=== PATIENT | female | born 1995 | race Caucasian/White ===

== ENCOUNTER 2023-03-24 12:16 | Emergency (ER) | payer OTHER, SELFPAY ==
[2023-03-24] VITALS (7 sets, daily range): BP systolic 105–158; BP diastolic 53–107; BMI 40.8
[2023-03-24 14:01] LABS: % Basophils 0.6 % (0-2); % Eosinophils 5.2 % (0-6); % Immature Granulocytes 0.2 % (0-0.5); % Lymphocytes 32.4 % (20.5-51.1); % Monocytes 4.8 % (1.7-9.3); % Neutrophils 56.8 % (42.2-75.2); Absolute Basophils 0.1 10^3/uL (0-0.2); Absolute Eosinophils 0.6 10^3/uL (0-0.7); Absolute Monocytes 0.6 10^3/uL (0.1-0.6); Absolute Neutrophils 6.9 10^3/uL (1.4-6.5); Hematocrit 35.1 % (37.0-47.0); Hemoglobin 12.2 g/dL (12.0-16.0); Mean Corp Hgb Conc. 34.8 g/dL (33.0-37.0); Mean Corpuscular Hgb 29.7 pg (27.0-31.0); Mean Corpuscular Volume 85.4 fL (81.0-99.0); Mean Platelet Volume 9.8 fL (7.4-10.4); Nucleated Red Blood Cells % 0 %; Platelet Count 369 10^3/uL (130-400); Red Blood Cell Count 4.11 10^6/uL (4.20-5.40); Red Cell Dist. Width 13.3 % (11.5-14.5); White Blood Cell Count 12.2 10^3/uL (4.8-10.8)
[2023-03-24 14:25] LABS: ALT (SGPT) 14 U/L (0-35); AST (SGOT) 19 U/L (14-36); Albumin 3.9 g/dl (3.5-5.0); Alkaline Phosphatase 74 U/L (38-126); Blood Urea Nitrogen 14 mg/dl (7-17); Calcium 9.3 mg/dl (8.4-10.2); Carbon Dioxide 24 mmol/L (22-30); Chloride 102 mmol/L (98-107); Estimated Creatinine Clearance 118 ml/min; Glucose 100 mg/dl (70-99); Potassium 4.2 mmol/L (3.5-5.1); Sodium 136 mmol/L (135-145); Total Bilirubin 0.5 mg/dl (0.2-1.3); Total Protein 7.1 g/dl (6.3-8.2); eGFR > 60.00
[2023-03-24 14:29] LABS: HCG, Serum Qualitative Screen Negative
--- NOTE | 2023-03-24 14:39 | ED.GENMED ---
History of Present Illness
General
Chief Complaint: Heart Rate Problem
Source: patient
Exam Limitations: none
Time Seen by Provider: 03/24/23 12:40
Travel History
Have you had any contact with someone who has COVID-19?: No
Do you have any symptoms of coronavirus? Fever > 100 degrees, chills, cough, shortness of breath, sore throat, loss of taste or smell, muscle aches, or headache?: No
History of Present Illness
History of Present Illness:
27-year-old female who presents with complaint palpitations been ongoing for few days. Patient states that they are intermittent. On my evaluation she currently is having no palpitations. Patient also reports a little bit of chest pressure that
was similar to her previous costochondritis but not exact. She admits that she has had no shortness of breath or leg swelling. No leg pain. Does admit she has not been sleeping well as she is working 3 jobs. No fevers. No cough. No hemoptysis.
No [id number] cough cold medicines. No caffeine use. No drug use. Patient did recently start Ozempic as she is 'prediabetic'.
Past History
Past History
ED Past Medical History: Asthma and Other (Anxiety, prediabetes)
Social History
Tobacco: Non-smoker
Alcohol: None
Family History
Family History: CAD and Other ( stroke)
Phy Exam
Physical Exam
Physical Exam:
CONSTITUTIONAL Patient alert and oriented to person, place and time. Well-appearing. Vital signs reviewed.
HEAD atraumatic, normocephalic.
EYES eyelids normal to inspection, Pupils equally round and reactive to light, Extraocular muscles intact, Conjunctiva normal, Sclera normal.
NECK normal range of motion, Trachea midline, no jugular venous distention.
RESPIRATORY CHEST No respiratory distress noted, Chest expansion equal, Bilateral breath sounds clear.
CARDIOVASCULAR regular rate and rhythm, Heart sounds normal.
ABDOMEN abdomen nontender, Bowel sounds normal. No distention.
BACK normal inspection, no obvious deformities
UPPER EXTREMITY range of motion normal, Motor strength normal, no cyanosis, no edema.
LOWER EXTREMITY range of motion normal, Motor strength normal, no cyanosis, no edema.
NEURO Speech normal, No focal motor deficits, Teena coma scale 15, Memory normal, Cranial Nerves intact to screening exam.
SKIN skin warm, dry, and normal in color.
PSYCHIATRIC patient oriented to person place and time, Normal affect.
Course
Orders/Labs/Results
Orders:
Orders
03/24/23 12:20
Electrocardiogram (*1) Urgent
Reason for Study: Palpitations
03/24/23 12:21
EKG- Treatment ONCE
03/24/23 13:16
Test Result ONCE
03/24/23 13:53
CMP [Comprehensive Metabolic Panel] Urgent
Complete Blood Count/With Diff Urgent
HCG, Serum Qualitative Screen Stat
Magnesium Urgent
Abnormal Lab Results
03/24/23
13:53
WBC 12.2 H 10^3/uL
(4.8-10.8)
RBC 4.11 L 10^6/uL
(4.20-5.40)
Hct 35.1 L %
(37.0-47.0)
Absolute Neuts (auto) 6.9 H 10^3/uL
(1.4-6.5)
Absolute Lymphs (auto) 4.0 H 10^3/uL
(1.2-3.4)
Glucose 100 H mg/dl
(70-99)
03/24/23 13:53
03/24/23 13:53
Vital Signs
Initial and Last Documented VS:
Initial Vital Signs
Temp Pulse Resp BP Pulse Ox
98.8 F 101 18 158/107 100
03/24/23 12:18 03/24/23 12:18 03/24/23 12:18 03/24/23 12:18 03/24/23 12:18
Last Documented Vital Signs
Temp Pulse Resp BP Pulse Ox
98.8 F 89 13 105/53 98
03/24/23 12:18 03/24/23 13:45 03/24/23 13:45 03/24/23 13:00 03/24/23 13:47
MDM/Problems Addressed
MDM/Problems Addressed:
Palpitations
*Pulse Oximetry
Patient hypoxic: no
*EKG
Interpreted by ED Provider?: Yes
Interpretation: normal
Rate: normal
Rhythm: sinus
[place]: normal axis
QRS Pattern: normal QRS
Ischemia: no ischemia
*A&P Mechanic Interpretation
Rate: normal
Interpretation: normal
Rhythm: sinus
*Critical Care Note
Total Time (30-74mins, 75-104mins- exclusive of procedures): Not Applicable
Data Reviewed
Source: patient
Further Testing Considered But Not Given:
Considered troponin but no ischemic risks and no clinical concern. EKG normal
Patient Management
Escalation/DeEscalation of care consider admission/obs:
Normal sinus rhythm with telemetry monitoring. EKG and labs unremarkable. Okay for discharge. No clinical concern for DVT, PE or concerning arrhythmia
ED Attending Note
-
Portions of this chart may have been created with voice recognition software.� Occasional wrong word or��sound alike� substitutions may have occurred due to the inherent limitations of voice recognition software.
Discharge Plan
Departure
Patient Disposition: Home (Routine Discharge)
Date of Disposition: 03/24/23
Time of Disposition: 14:44
Patient with high blood pressure during this ER visit?: No
Discharge Problem:
Palpitations
Instructions: Palpitations (DC)
Referrals:
DonerRamy, DO [Family Provider] -
Activity Restrictions/Additional Instructions:
Please see your doctor in the next 1 week for follow-up and reevaluation. Please drink plenty of fluids and ensure proper rest. Return for worsening symptoms, shortness of breath, chest pain, leg swelling, coughing up blood or any other concerns.
Interventions
Interventions:
*Risk Screen - Suicide Last Done: 03/24/23 12:18
*General Assessment Last Done: 03/24/23 12:18
*Neglect/Abuse Screening Last Done: 03/24/23 12:18
ED- Fall Risk Assessment Last Done: 03/24/23 13:47
*ED COVID-19 Vaccine History Last Done: 03/24/23 12:18
ED- Cardiac Assessment Last Done: 03/24/23 13:47
ED- Pulmonary Assessment Last Done: 03/24/23 13:47
--- NOTE | 2023-03-24 15:38 | EDRN ---
Reviewed discharge instructions with patient. Verbalized understanding. Ambulated with steady gait to the lobby.
== END 2023-03-24 15:30 | disposition home or self-care (01) ==
LOC: EMR 12:16
PROVIDERS: EMERGENCY PHYSICIAN Emergency Medicine; FAMILY PHYSICIAN Family Medicine
DX: R00.2 Palpitations (principal)
CPT/HCPCS: 99284; 80053; 83735; 84703; 85025; 93005